=== PATIENT | female | born 1965 | race Caucasian/White ===

== ENCOUNTER → 2018-01-15 16:25 | Outpatient (REF) | payer OTHER, SELFPAY ==
[2018-01-15 16:35] LABS: Basophils % 0.3 % (0.1-2.0); Eosinophils # 0.1 K/mm3 (0.0-0.4); Eosinophils % 2.6 % (0.1-12.0); Hematocrit 43.1 % (37.0-47.0); Hemoglobin 14.6 g/dL (12.2-16.2); Lymphocytes # 1.1 K/mm3 (0.7-4.5); Mean Corpuscular HGB Conc 33.9 g/dL (31.8-35.4); Mean Corpuscular Hemoglobin 33.6 pg (27.0-31.2); Mean Corpuscular Volume 99.2 fl (81-99); Mean Platelet Volume 8.5 fl (7.4-10.4); Monocytes # 0.4 K/mm3 (0.1-1.0); Monocytes % 9.4 % (1.7-9.3); Neutrophils # 2.2 K/mm3 (1.8-7.8); Neutrophils % 57.7 % (37.0-80.0); Platelet Count 195 K/mm3 (142-424); Red Blood Count 4.35 M/mm3 (4.20-5.40); Red Cell Distribution Width 12.2 % (11.5-17.5); White Blood Count 3.8 K/mm3 (4.8-10.8)
[2018-01-15 16:51] LABS: Hemoglobin A1C 6.2 % (0.0-7.0)
[2018-01-15 17:26] LABS: Anion Gap 15.2 mEq/L (5-15); Blood Urea Nitrogen 14 mg/dL (7-18); Carbon Dioxide 27 mmol/L (21.0-32.0); Chloride 103 mmol/L (98-107); Creatine Kinase 144 U/L (26-192); Creatinine,Serum 0.71 mg/dL (0.55-1.02); Estimated Glomerular Filt Rate 86 ml/min (>60); GFR (African American) 105 ML/MIN (>60); Glucose 149 mg/dL (74-106); Sodium 141 mmol/L (136-145); Thyroid Stimulating Hormone 4.27 uIU/ml (0.358-3.740)
[2018-01-15 17:27] LABS: Potassium 4.2 mmoL/L (3.5-5.1)
[2018-01-15 18:19] LABS: Erythrocyte Sedimentation Rate 14 mm/hr (0-30)
== END ==
LOC: LAB 16:25
PROVIDERS: Visit Provider Internal Medicine
DX: M79.1 Myalgia (principal); E11.42 Type 2 diabetes mellitus with diabetic polyneuropathy; E03.9 Hypothyroidism, unspecified
CPT/HCPCS: 80048; 82550; 83036; 84443; 85025; 85651

== ENCOUNTER → 2018-09-22 16:49 | Outpatient (CLI) | payer OTHER, SELFPAY ==
[2018-09-22 17:28] LABS: Basophils % 0.7 % (0.1-2.0); Eosinophils # 0.1 K/mm3 (0.0-0.4); Eosinophils % 2.1 % (0.1-12.0); Hematocrit 43.5 % (37.0-47.0); Hemoglobin 14.6 g/dL (12.2-16.2); Lymphocytes # 1.7 K/mm3 (0.7-4.5); Lymphocytes % 24.5 % (10-50); Mean Corpuscular HGB Conc 33.5 g/dL (31.8-35.4); Mean Corpuscular Hemoglobin 32.9 pg (27.0-31.2); Mean Corpuscular Volume 98.1 fl (81-99); Mean Platelet Volume 7.9 fl (7.4-10.4); Monocytes # 0.5 K/mm3 (0.1-1.0); Monocytes % 7.3 % (1.7-9.3); Neutrophils # 4.4 K/mm3 (1.8-7.8); Neutrophils % 65.4 % (37.0-80.0); Platelet Count 216 K/mm3 (142-424); Red Blood Count 4.44 M/mm3 (4.20-5.40); Red Cell Distribution Width 12.9 % (11.5-17.5); White Blood Count 6.8 K/mm3 (4.8-10.8)
[2018-09-22 19:06] LABS: Hemoglobin A1C 7.9 % (0.0-7.0)
[2018-09-22 19:38] LABS: Magnesium 1.8 mg/dL (1.4-2.2); Potassium 3.8 mmoL/L (3.5-5.1); Sodium 141 mmol/L (136-145)
[2018-09-22 19:52] LABS: Albumin Level 4.3 gm/dL (3.4-5.0)
[2018-09-22 20:16] LABS: Alanine Aminotransferase 72 U/L (12-78); Albumin/Globulin Ratio 1.5 (1.1-1.8); Alkaline Phosphatase 96 U/L (46-116); Anion Gap 17.8 mEq/L (5-15); Aspartate Amino Transferase 30 U/L (15-37); Bilirubin,Total 0.3 mg/dL (0.2-1.0); Blood Urea Nitrogen 15 mg/dL (7-18); Calcium 9.5 mg/dL (8.5-10.1); Carbon Dioxide 25 mmol/L (21.0-32.0); Chloride 102 mmol/L (98-107); Estimated Glomerular Filt Rate 88 ml/min (>60); Ferritin 297 ng/mL (8-388); GFR (African American) 106 ML/MIN (>60); Globulin 2.9 gm/dl (1.3-3.2); Glucose 176 mg/dL (74-106); Thyroid Stimulating Hormone 2.38 uIU/ml (0.358-3.740); Total Protein,Serum 7.2 gm/dL (6.4-8.2)
== END ==
PROVIDERS: Visit Provider Nurse Practitioner Family
DX: R19.5 Other fecal abnormalities (principal); K62.89 Other specified diseases of anus and rectum; E03.9 Hypothyroidism, unspecified; G47.62 Sleep related leg cramps; R73.03 Prediabetes
CPT/HCPCS: 36415; 80053; 82728; 83036; 83735; 84443; 85025

== ENCOUNTER → 2019-09-18 12:02 | Outpatient (CLI) | payer OTHER, SELFPAY ==
[2019-09-18 12:55] LABS: Basophils # 0.1 K/mm3 (0-0.2); Basophils % 0.8 % (0.1-2.0); Eosinophils # 0.1 K/mm3 (0.0-0.4); Eosinophils % 2.3 % (0.1-12.0); Hematocrit 48.6 % (37.0-47.0); Lymphocytes # 1.7 K/mm3 (0.7-4.5); Mean Corpuscular Hemoglobin 32.6 pg (27.0-31.2); Mean Corpuscular Volume 99.1 fl (81-99); Mean Platelet Volume 8.3 fl (7.4-10.4); Monocytes # 0.5 K/mm3 (0.1-1.0); Monocytes % 8.8 % (1.7-9.3); Neutrophils # 3.2 K/mm3 (1.8-7.8); Platelet Count 290 K/mm3 (142-424); Red Blood Count 4.91 M/mm3 (4.20-5.40); Red Cell Distribution Width 12.6 % (11.5-17.5); White Blood Count 5.6 K/mm3 (4.8-10.8)
[2019-09-18 14:08] LABS: Alanine Aminotransferase 40 U/L (12-78); Albumin Level 4.3 gm/dL (3.4-5.0); Albumin/Globulin Ratio 1.5 (1.1-1.8); Alkaline Phosphatase 81 U/L (46-116); Anion Gap 16.7 mEq/L (5-15); Aspartate Amino Transferase 31 U/L (15-37); Bilirubin,Total 0.5 mg/dL (0.2-1.0); Blood Urea Nitrogen 14 mg/dL (7-18); Calcium 9.4 mg/dL (8.5-10.1); Carbon Dioxide 26 mmol/L (21.0-32.0); Chloride 103 mmol/L (98-107); Creatinine,Serum 0.76 mg/dL (0.55-1.02); Estimated Glomerular Filt Rate 79 ml/min (>60); GFR (African American) 96 ML/MIN (>60); Globulin 2.9 gm/dl (1.3-3.2); Glucose 110 mg/dL (74-106); Potassium 4.7 mmoL/L (3.5-5.1); Sodium 141 mmol/L (136-145); Total Protein,Serum 7.2 gm/dL (6.4-8.2)
== END ==
PROVIDERS: Visit Provider Surgery
DX: K82.9 Disease of gallbladder, unspecified (principal)
CPT/HCPCS: 36415; 80053; 85025

== ENCOUNTER → 2019-11-06 07:45 | Outpatient (CLI) | payer OTHER, SELFPAY ==
[2019-11-06 09:33] LABS: Chol/HDL Ratio 3.1 (1-3.5); Cholesterol 207 mg/dL (140-200); HDL Cholesterol 66 mg/dL (29-89); LDL Cholesterol 128 mg/dL (0-130); Thyroid Stimulating Hormone 2.51 uIU/ml (0.358-3.740); Triglycerides 66 mg/dL (30-200); VLDL Cholesterol 13 mg/dL (0-40)
[2019-11-06 10:48] LABS: Hemoglobin A1C 6.4 % (0.0-7.0)
== END ==
PROVIDERS: Visit Provider Nurse Practitioner Family
DX: E11.65 Type 2 diabetes mellitus with hyperglycemia (principal); E03.9 Hypothyroidism, unspecified
CPT/HCPCS: 36415; 80061; 83036; 84443; J1642

== ENCOUNTER → 2020-05-04 12:36 | Outpatient (CLI) | payer OTHER, SELFPAY ==
--- NOTE | 2020-05-04 12:47 | XR_ITS ---
PROCEDURE: XR CHEST 2V CLINICAL HISTORY: COUGH,ACUTE URI The COMPARISON: XR CHEST 2V from 09/24/2019 FINDINGS: The cardiomediastinal silhouette and pulmonary vascularity are within normal limits. Calcified node is present in the azygos region in the right paratracheal area. There is increased density in the left upper lobe medially. While this could be related overlying summation artifact of the ribs, 1 cannot exclude a soft tissue mass in this region. Consider chest CT with contrast for further evaluation in this patient with shortness of breath. An area of consolidation is also consideration. The remaining lungs are clear. No acute bony abnormalities. IMPRESSION: Indeterminate increased density in the left upper lobe medially which could be due to summation artifact, mass, or consolidation. Consider chest CT with contrast for further evaluation Dictated by: Morro Charlton MD 05/04/2020 13:41 Electronically signed by Morro Charlton MD in [place] 05/04/2020 13:41
[2020-05-05 06:45] LABS: Covid-19 Nasal PCR Sendout Lex NOT DETECTED
== END ==
PROVIDERS: PCP Internal Medicine Adolescent Medicine; Visit Provider Internal Medicine Adolescent Medicine
DX: Z20.828 Contact with and (suspected) exposure to other viral communicable diseases (principal); R05 Cough; J06.9 Acute upper respiratory infection, unspecified
CPT/HCPCS: 71046; U0004

== ENCOUNTER → 2020-05-20 14:13 | Outpatient (CLI) | payer OTHER, SELFPAY ==
--- NOTE | 2020-05-20 14:22 | CT_ITS ---
PROCEDURE: CT CHEST W CON CLINCAL INDICATION: ABN CHEST XRAY Cough, follow-up abnormal chest x-ray COMPARISON: CR XR CHEST 2V from 09/24/2019 CR XR CHEST 2V from 05/04/2020 TECHNIQUE: IV Contrast: 75ml Optiray 350 Axial images obtained with sagittal and coronal reformats. All CT scans at the facility use one or more dose reduction, viz: automated exposure control, ma/kV adjustment per patient size (including targeted exams where dose is matched to indication, i.e. head), or iterative reconstruction technique. FINDINGS: HEART AND MEDIASTINAL STRUCTURES: There is a mildly prominent lymph node in the AP window on the left at 1.6 x 0.7 cm. No mediastinal mass is evident. No evidence of aortic aneurysm, dissection, or pulmonary embolus. LUNGS AND PLEURAL SPACES: There is a lobulated soft tissue mass in the left upper lobe medially corresponding to the radiographic abnormality. This measures 2.6 by 1.8 by 3.5 cm transverse, AP, and cephalad caudad in nature. The medial aspect of this mass abuts the lateral aspect of the left subclavian artery. This mass is noncalcified and is suspicious for neoplasm. This should be accessible for biopsy via bronchoscopic approach. The mass lies just medial to the anterior segmental bronchus. Minimal nodularity is present in the right apex and may be due to scarring. The the calcified nodules present in the right upper lobe inferiorly. There is a 4 mm subpleural nodule in the right lower lobe anteriorly image 51 series 3. A 3 mm nodules present in the left upper lobe anteriorly image 38 series 3. 4 mm nodule left upper lobe laterally image 41 series 3 BONY STRUCTURES: No acute bony abnormalities apparent. UPPER ABDOMEN: Cortical scarring involves the right kidney posteriorly ADDITIONAL FINDINGS: No other significant abnormalities. IMPRESSION: 3.5 x 2.6 x 1.8 cm left upper lobe mass lobulated and noncalcified suspicious for neoplasm. Suggest pulmonary consult. This should be amenable to tissue sampling by bronchoscopy. There are several small noncalcified pulmonary nodules as described above. These are nonspecific and could be inflammatory/infectious or due to metastatic disease. Follow-up is suggested There is a mildly prominent aortopulmonic window mediastinal lymph node at 1.6 x 0.7 cm Dictated b Morro Charlton MD 05/21/2020 09:28 Morro Charlton MD in [place] 05/21/2020 09:28
[2020-05-20 14:33] LABS: Blood Urea Nitrogen 11 mg/dl (7-17)
[2020-05-20 14:34] LABS: Estimated Glomerular Filt Rate 87 ml/min (>60); GFR (African American) 106 ML/MIN (>60)
== END ==
PROVIDERS: Visit Provider Nurse Practitioner Family
DX: R93.89 Abnormal findings on diagnostic imaging of other specified body structures (principal)
CPT/HCPCS: 36415; 71260; 82565; 84520; Q9967

== ENCOUNTER → 2020-10-04 07:57 | Outpatient (CLI) | payer OTHER, SELFPAY ==
[2020-10-04 08:21] LABS: Eosinophils # 0.2 K/mm3 (0.0-0.4); Eosinophils % 4.1 % (0.1-12.0); Hematocrit 44.8 % (37.0-47.0); Hemoglobin 14.2 g/dL (12.2-16.2); Lymphocytes # 1.4 K/mm3 (0.7-4.5); Lymphocytes % 32.5 % (10-50); Mean Corpuscular HGB Conc 31.7 g/dL (31.8-35.4); Mean Corpuscular Hemoglobin 32.3 pg (27.0-31.2); Mean Platelet Volume 7.6 fl (7.4-10.4); Monocytes # 0.3 K/mm3 (0.1-1.0); Monocytes % 7.6 % (1.7-9.3); Neutrophils # 2.4 K/mm3 (1.8-7.8); Neutrophils % 54.8 % (37.0-80.0); Platelet Count 209 K/mm3 (142-424); Red Blood Count 4.39 M/mm3 (4.20-5.40); Red Cell Distribution Width 12.4 % (11.5-17.5); White Blood Count 4.3 K/mm3 (4.8-10.8)
[2020-10-04 08:23] LABS: Creatinine,Urine Random 164 mg/dL (Not Estab.)
[2020-10-04 08:26] LABS: Microalbumin/Creatinine Ratio 6.4
[2020-10-04 08:36] LABS: Hemoglobin A1C 6.4 % (4.0-6.0)
[2020-10-04 09:09] LABS: Chloride 106 mmol/L (98-107); Potassium 4.6 mmoL/L (3.5-5.1); Sodium 140 mmol/L (136-145)
[2020-10-04 09:11] LABS: Alanine Aminotransferase 37 U/L (12-78); Alkaline Phosphatase 76 U/L (38-126); Aspartate Amino Transferase 34 U/L (14-36); Bilirubin,Total 0.5 mg/dl (0.2-1.3); Blood Urea Nitrogen 13 mg/dl (7-17); Estimated Glomerular Filt Rate 87 ml/min (>60); GFR (African American) 105 ML/MIN (>60)
[2020-10-04 09:12] LABS: Albumin Level 4.4 g/dl (3.5-5.0); Albumin/Globulin Ratio 1.8 (1.1-1.8); Anion Gap 11.6 mEq/L (5-15); Calcium 9.8 mg/dl (8.4-10.2); Carbon Dioxide 27 mmol/L (22.0-30.0); Chol/HDL Ratio 2.5 (1-3.5); Cholesterol 227 mg/dl (140-200); Globulin 2.5 g/dL (1.3-3.2); Glucose 140 mg/dl (74-100); HDL Cholesterol 91 mg/dl (40-60); Total Protein,Serum 6.9 g/dl (6.3-8.2); Triglycerides 84 mg/dl (30-150); VLDL Cholesterol 17 mg/dL (0-40)
[2020-10-04 09:23] LABS: Direct LDL Cholesterol 105.42 mg/dL (100-129)
[2020-10-04 09:43] LABS: Thyroid Stimulating Hormone 3.61 uIU/mL (0.465-4.68)
[2020-10-04 14:53] LABS: Vitamin B12 341 pg/mL (239-931)
== END ==
PROVIDERS: Internal Medicine Adolescent Medicine; Visit Provider Nurse Practitioner Family
DX: E11.9 Type 2 diabetes mellitus without complications (principal); E03.9 Hypothyroidism, unspecified; J01.10 Acute frontal sinusitis, unspecified
CPT/HCPCS: 36415; 80053; 80061; 82043; 82570; 82607; 82746; 83036; 84443; 85025

== ENCOUNTER → 2021-01-20 08:18 | Outpatient (CLI) | payer OTHER, SELFPAY ==
--- NOTE | 2021-01-20 08:19 | CT_ITS ---
PROCEDURE: CT CHEST WO CON CLINICAL INDICATION: Follow up Lung nodule COMPARISON: CT CT CHEST W CON from 05/20/2020 TECHNIQUE: Axial images obtained with sagittal and coronal reformats. All CT scans at the facility use one or more dose reduction, viz: automated exposure control, ma/kV adjustment per patient size (including targeted exams where dose is matched to indication, i.e. head), or iterative reconstruction technique. FINDINGS: HEART AND MEDIASTINAL STRUCTURES: Small AP window node is once again noted overall not significantly changed approximately 1.8 0.6 cm. Calcified nodes are present in the right paratracheal region. LUNGS AND PLEURAL SPACES: Noncalcified nodular opacity once again noted in the left upper lobe medially. The nodule is smaller compared to the previous exam measuring 1.7 x 0.7 cm previously 2.6 x 1.8 cm. There is some atelectatic change noted along the cephalad portion of the nodule. The solid component of the nodule measures 2.1 cm cephalad caudad previously 2.9 cm. The interval decrease in size would suggest an inflammatory/infectious etiology assuming there has been no interval treatment there are few scattered small pulmonary nodules noted as previously described not significantly changed. No new nodules are evident. BONY STRUCTURES: No acute bony abnormalities apparent. UPPER ABDOMEN: Scarring noted involving the posterior aspect of the right kidney superiorly. ADDITIONAL FINDINGS: No other significant abnormalities. IMPRESSION: 1. Interval decrease in size in left upper lobe pulmonary nodule which may indicate an infectious/inflammatory etiology assuming there has been no interval treatment for neoplasm. Continued follow-up is suggested. 2. Stable appearance of the scattered smaller pulmonary nodules and stable left AP window lymph node Dictated by: Morro Charlton MD 01/21/2021 15:46 Morro Charlton MD in [place] 01/21/2021 15:46
== END ==
PROVIDERS: PCP Internal Medicine Adolescent Medicine; Visit Provider Internal Medicine Pulmonary Disease
DX: R91.8 Other nonspecific abnormal finding of lung field (principal)
CPT/HCPCS: 71250

== ENCOUNTER → 2021-10-25 14:38 | Outpatient (CLI) | payer OTHER, SELFPAY ==
--- NOTE | 2021-10-25 14:38 | CT_ITS ---
FINAL REPORT TECHNIQUE: Axial images were obtained from the lung apex to the mid abdomen by computed tomography. Coronal reformatted images were obtained. This study was performed with techniques to keep radiation doses as low as reasonably achievable, (ALARA). Individualized dose reduction techniques using automated exposure control or adjustment of mA and/or kV according to the patient''s size were employed. CLINICAL HISTORY: soa COMPARISON: January 20, 2021 and May 20, 2020 FINDINGS: There is no axillary adenopathy. There is no hilar or mediastinal adenopathy. There is a lateral AP window lymph node measuring 17 mm and was 19 mm. Heart size is normal. There is no pericardial or pleural effusion. Limited images of the upper abdomen demonstrates a mild fatty infiltrated liver and the gallbladder is surgically absent. There is an 11 mm nodule in the left upper lobe that previously measured 16 mm. There are no new masses or nodules identified. IMPRESSION: Improved left upper lobe nodule favored to be post inflammatory. Slightly improved AP window node, favor reactive. Reviewed, Interpreted and Dictated by Obie Shetty III, MD Transcribed by Clotilde Ley Authenticated by Obie Shetty III, MD on 10/25/2021 03:44:29 PM [facility]
== END ==
PROVIDERS: PCP Internal Medicine Adolescent Medicine; Visit Provider Internal Medicine Pulmonary Disease
DX: R91.8 Other nonspecific abnormal finding of lung field (principal)
CPT/HCPCS: 71250

== ENCOUNTER → 2022-08-23 10:12 | Outpatient (CLI) | payer OTHER, SELFPAY ==
[2022-08-23 10:20] LABS: Adenovirus F 40/41, stool Not Detected (NotDetected); Campylobacter Not Detected (NotDetected); Clostridium Difficile A/B, PCR Not Detected (NotDetected); Cryptosporidium Not Detected (NotDetected); Cyclospora Cayetanesis Not Detected (NotDetected); Entamoeba histolytica Not Detected (NotDetected); Enteroaggregative E coli Not Detected (NotDetected); Enteropathogenic E coli Not Detected (NotDetected); Enterotoxigenic E coli Not Detected (NotDetected); Giardia lamblia Not Detected (NotDetected); Plesimonas Shigalloides, PCR Not Detected (NotDetected); Salmonella, PCR Not Detected (NotDetected); Shiga-like toxin E coli Not Detected (NotDetected); Shigella Enterovasive E coli Not Detected (NotDetected); Vibrio Cholerae Not Detected (NotDetected); Vibrio, PCR Not Detected (NotDetected); Yersinia Entercolitica, PCR Not Detected (NotDetected)
[2022-08-23 10:21] LABS: Astrovirus Not Detected (NotDetected); Norovirus Not Detected (NotDetected); Rotavirus A Not Detected (NotDetected); Sapovirus Not Detected (NotDetected)
== END ==
PROVIDERS: PCP Nurse Practitioner Family; Visit Provider Nurse Practitioner Family
DX: R19.7 Diarrhea, unspecified (principal)
CPT/HCPCS: 87507

== ENCOUNTER → 2022-10-29 15:18 | Outpatient (CLI) | payer OTHER, SELFPAY ==
--- NOTE | 2022-10-29 15:18 | CT_ITS ---
FINAL REPORT TECHNIQUE: Axial imaging of the chest was obtained without contrast. Reformatted images were also obtained and reviewed.This study was performed with techniques to keep radiation doses as low as reasonably achievable, (ALARA). Individualized dose reduction technique using automated exposure control or adjustment of mA and/or kV according to the patient's size were employed. CLINICAL HISTORY: Lung nodule COMPARISON: 10/25/2021 FINDINGS: There is no axillary adenopathy. There is a stable, prominent AP window lymph node. Heart size is normal. There is no pericardial or pleural effusion. There is a stable nodule seen in the medial left upper lobe measuring 12 mm, which previously measured 11 mm. On coronal images, this is somewhat elongated but stable. There are several, less than 5 mm, subpleural right upper lobe pulmonary nodules which are also stable. Lungs are otherwise clear. Limited imaging of the upper abdomen demonstrates fatty infiltration of the liver. IMPRESSION: Stable AP window lymph node. Stable left upper lobe nodule. Recommend continued follow-up to prove stability over 2 years time. Reviewed, Interpreted and Dictated by Emily Herrera MD Transcribed by Fadumo Hart Authenticated and [facility]
== END ==
PROVIDERS: PCP Nurse Practitioner Family; Visit Provider Internal Medicine Pulmonary Disease
DX: R91.8 Other nonspecific abnormal finding of lung field (principal)
CPT/HCPCS: 71250

== ENCOUNTER 2023-12-19 08:39 | Outpatient (CLI) | payer OTHER, SELFPAY ==
[2023-12-19 09:40] LABS: Alanine Aminotransferase 60 U/L (12-78); Albumin Level 4.6 g/dl (3.5-5.0); Albumin/Globulin Ratio 2.1 (1.1-1.8); Alkaline Phosphatase 105 U/L (38-126); Anion Gap 13.7 mEq/L (5-15); Aspartate Amino Transferase 51 U/L (14-36); Bilirubin,Total 0.6 mg/dl (0.2-1.3); Blood Urea Nitrogen 13 mg/dl (7-17); Carbon Dioxide 27 mmol/L (22.0-30.0); Chloride 104 mmol/L (98-107); Chol/HDL Ratio 2.9 (1-3.5); Cholesterol 188 mg/dl (140-200); Estimated Glomerular Filt Rate 86 ml/min (>60); GFR (African American) 104 ML/MIN (>60); Globulin 2.2 g/dL (1.3-3.2); Glucose 185 mg/dl (74-100); HDL Cholesterol 65 mg/dl (40-60); Potassium 4.7 mmoL/L (3.5-5.1); Sodium 140 mmol/L (136-145); Total Protein,Serum 6.8 g/dl (6.3-8.2); Triglycerides 127 mg/dl (30-150); VLDL Cholesterol 25 mg/dL (0-40)
[2023-12-19 09:51] LABS: Direct LDL Cholesterol 84.37 mg/dL (100-129)
[2023-12-19 10:10] LABS: Thyroid Stimulating Hormone 2.23 uIU/mL (0.465-4.68)
== END 2023-12-19 23:59 ==
LOC: LAB 08:40
PROVIDERS: PCP Nurse Practitioner Family; Visit Provider Nurse Practitioner Family
DX: E11.9 Type 2 diabetes mellitus without complications (principal); E03.9 Hypothyroidism, unspecified; E78.2 Mixed hyperlipidemia; Z79.84 Long term (current) use of oral hypoglycemic drugs
CPT/HCPCS: 36415; 80053; 80061; 83036; 84443

== ENCOUNTER 2024-11-05 15:19 | Outpatient (CLI) | payer OTHER, SELFPAY ==
--- NOTE | 2024-11-05 15:19 | CT_ITS ---
PROCEDURE INFORMATION: Exam: CT Chest Without Contrast; Diagnostic Exam date and time: 11/05/2024 3:21 PM Age: 59 years old Clinical indication: Other: Abnormal CT of chest TECHNIQUE: Imaging protocol: Diagnostic computed tomography of the chest without contrast. Radiation optimization: All CT scans at this facility use at least one of these dose optimization techniques: automated exposure control; mA and/or kV adjustment per patient size (includes targeted exams where dose is matched to clinical indication); or iterative reconstruction. COMPARISON: 1. CT CHEST WO CON 10/29/2022 3:[address] CHEST WO CON 10/25/2021 2:38 PM FINDINGS: Lungs: Decreasing size of thickened linear and nodular opacities in the medial left upper lobe. Previously seen 0.7 cm nodule now measures 0.5 cm. Previously seen 0.9 cm nodule now measures 0.8 cm. Punctate 2-3 mm subpleural nodules in the right upper lobe are unchanged. A few scattered sub 5 mm ground-glass nodules are unchanged. No new or enlarging nodules. Pleural spaces: Unremarkable. No pneumothorax. No pleural effusion. Heart: Unremarkable. No cardiomegaly. No pericardial effusion. Coronary arteries: No significant coronary artery calcification. Lymph nodes: Calcified right paratracheal and right hilar lymph nodes. Unchanged AP window lymph node measuring 0.6 cm in short axis. Vasculature: Unremarkable. No aortic aneurysm. Gallbladder and biliary ducts: Status post cholecystectomy. Spleen: Calcified granulomas in the spleen. No splenomegaly. Kidneys: Mild right renal scarring with an unchanged punctate dystrophic calcification in the right upper pole. Bones/joints: Mild thoracic spine degenerative change. Soft tissues: Unremarkable. IMPRESSION: 1. Slightly decreased size of medial left upper lobe nodular opacity, which is likely postinfectious. 2. Additional scattered bilateral punctate pulmonary nodules remain unchanged consistent with benign nodules. 3. Prior granulomatous disease.
== END 2024-11-05 23:59 | disposition home or self-care (01) ==
LOC: RAD 15:19
PROVIDERS: PCP Nurse Practitioner Family; Visit Provider Internal Medicine Pulmonary Disease
DX: R91.8 Other nonspecific abnormal finding of lung field (principal)
CPT/HCPCS: 71250

== ENCOUNTER 2024-12-29 13:16 | Outpatient (CLI) | payer OTHER, SELFPAY ==
--- NOTE | 2024-12-29 13:21 | US_ITS ---
FINAL REPORT TECHNIQUE: Limited sonographic imaging of the right axilla was obtained. CLINICAL HISTORY: AXILLARY ADENOPATHY FINDINGS: There are a few, scattered normal-appearing right axillary lymph nodes measuring up to 15 x 7 mm. These are predominantly fatty in appearance. No dominant mass is identified. IMPRESSION: No evidence of mass or enlarged lymph node. Reviewed, Interpreted and Dictated by Deepak Gusman MD Transcribed by Fadumo Hart Authenticated and [facility]
--- NOTE | 2024-12-29 13:22 | MM_ITS ---
PROCEDURE INFORMATION: Exam: MG Bilateral Screening 3D Mammography Exam date and time: 12/29/2024 1:51 PM Age: 59 years old Clinical indication: Screening examination TECHNIQUE: Imaging protocol: Bilateral Screening tomosynthesis and 2D mammography including computer-aided detection (CAD) when performed. COMPARISON: 1. MG DMSB DIG MAMM-SCREEN ROSY W/CAD 05/13/2017 10:21 AM 2. MG DIG MAMMO DIAG UNI LEFT 08/29/2010 11:44 AM FINDINGS: MAMMOGRAPHY: Breast composition: There are scattered areas of fibroglandular density. Mass: None. Architectural distortion: None. Calcifications: No suspicious calcifications. Asymmetric density: None. Skin thickening: None. Axillary adenopathy: None. IMPRESSION: No mammographic evidence of malignancy. Annual screening is recommended unless otherwise clinically indicated. ASSESSMENT: BI-RADS Category 1: Negative.
== END 2024-12-29 23:59 | disposition home or self-care (01) ==
LOC: RAD 13:16
PROVIDERS: PCP Nurse Practitioner Family; Visit Provider Nurse Practitioner Family
DX: R59.0 Localized enlarged lymph nodes (principal); Z12.31 Encounter for screening mammogram for malignant neoplasm of breast
CPT/HCPCS: 76642; 77063; 77067

== ENCOUNTER 2025-10-05 15:17 | Outpatient (CLI) | payer OTHER, SELFPAY | END 2025-10-05 23:59 | disposition home or self-care (01) | LOC: LAB 15:18 | PROVIDERS: PCP Nurse Practitioner Family; Visit Provider Internal Medicine Gastroenterology | DX: R69 Illness, unspecified (principal) ==

== ENCOUNTER 2025-10-13 09:17 | Outpatient (CLI) | payer OTHER, SELFPAY ==
[2025-10-18 19:10] LABS: Pancreatic Elastase, Fecal >800 (>200)
== END 2025-10-13 23:59 | disposition home or self-care (01) ==
LOC: LAB 09:18
PROVIDERS: PCP Nurse Practitioner Family; Visit Provider Internal Medicine Gastroenterology
DX: R14.0 Abdominal distension (gaseous) (principal); K52.9 Noninfective gastroenteritis and colitis, unspecified; R14.3 Flatulence
CPT/HCPCS: 82653